=== PATIENT | male | born 1990 | race Caucasian/White ===

== ENCOUNTER 2020-08-10 16:10 | Outpatient (REF) | payer SELFPAY | END 2020-08-10 16:11 | disposition home or self-care (01) | LOC: HO.LAB 16:10 | PROVIDERS: Visit Provider Internal Medicine | DX: Z20.828 Contact with and (suspected) exposure to other viral communicable diseases (principal) | CPT/HCPCS: C9803; U0003 ==

== ENCOUNTER 2023-10-28 12:40 | Emergency (ER) | payer SELFPAY ==
--- NOTE | ~2023-10-28 | XR_ITS ---
EXAMINATION: XR CHEST CLINICAL INFORMATION: Cough and fever COMPARISON: Previous chest x-ray September 2017 TECHNIQUE: 2 views of the chest were obtained. FINDINGS: The cardiac and mediastinal contours are stable. The lungs are clear. No pleural effusion or pneumothorax. There is widening of the left paraspinal line adjacent to the lower thoracic spine, T9-T10. This is slightly increased from 2018 exam and probably related to vertebral body bony osteophyte. Bony structures otherwise unremarkable. XR/XR chest 2V IMPRESSION: No evidence for pneumonia. Widening of the left paraspinal line adjacent to the lower thoracic spine probably related to vertebral body bony osteophyte.
[2023-10-28 13:25] VITALS: BP 124/69; PULSE 55; RESP 18; TEMP 36.6; O2SAT 99; BMI 21.0
--- NOTE | 2023-10-28 13:36 | ED_ITS ---
HPI - URI/Sore Throat General Chief Complaint: Upper Respiratory Symptoms Stated Complaint: flu symptoms Time Seen by Provider: 10/28/23 13:28 Source: patient and family Mode of arrival: ambulatory Limitations: no limitations History of Present Illness HPI Narrative: 33-year-old male previously healthy here with 8 days of cough, congestion, body aches, runny nose. Patient denies chest pain, abdominal pain, vomiting, diarrhea, shortness of breath, skin rash, neck pain, neck stiffness, urinary symptoms. He reports initially he had a subjective fever but this is now resolved. The cough is nonproductive. He denies any recent travel or sick contact. NO weight loss, night sweats. Related Data Allergies Allergy/AdvReac Type Severity Reaction Status Date / Time No Known Allergies Allergy Verified 10/28/23 13:27 Review of Systems Review of Systems: Yes all other systems are reviewed and are negative Constitutional: Constitutional: Reports no additional constitutional complaints, Reports body ache(s), Denies chills, Reports fever(s), Denies headache(s) and Denies weakness Eyes: Eyes: Reports no additional eye complaints and Denies change in vision ENT: Reports system reviewed and no additional complaints, except as documented, Denies dizziness, Denies headache(s), Reports nasal congestion, Denies nasal discharge and Denies neck pain Cardiovascular: Cardiovascular: Reports no additional cardiovascular complaints, Denies chest pain, Denies leg edema and Denies dyspnea Respiratory: Respiratory: Reports no additional respiratory complaints, Reports cough and Denies dyspnea Gastrointestinal: Gastrointestinal: Reports no additional gastrointestinal complaints, Denies abdominal pain, Denies diarrhea, Denies nausea and Denies vomiting Genitourinary: Genitourinary: Denies urinary incontinence Musculoskeletal: Musculoskeletal: Reports no additional musculoskeletal complaints, Denies back pain, Denies arthralgias, Denies joint swelling, Denies neck pain, Denies numbness and Denies tingling Integumentary/Breasts: Skin/Breast: Reports system reviewed and no additional complaints, except as docu and Denies rash Neurologic: Reports system reviewed and no additional complaints, except as documented, Denies Abnormal speech present, Denies dizziness, Denies headache(s), Denies numbness, Denies tingling and Denies weakness FORMERLY [facility], [facility] Past Medical History Attestation statement: The following information was validated with the patient. Source: old records reviewed and nursing notes reviewed Social History Social History Advance Directives: No Advance Directives Information Provided: No Physical Exam Vital Signs: Vital Signs: Last Vital Signs Temp 97.8 F 10/28/23 13:25 Pulse 55 10/28/23 13:25 Resp 18 10/28/23 13:25 BP 124/69 10/28/23 13:25 Pulse Ox 99 10/28/23 13:25 O2 Del Method Room Air 10/28/23 13:25 BMI result Body Mass Index 21.0 Const: General: cooperative, healthy appearing, comfortable and no acute distress Orientation/consciousness: patient oriented x3 Limitations: no limitations HEENT: Head: Yes normal to inspection Ears: hearing grossly normal bilaterally and TM's normal bilaterally General nose exam: Normal external nose present Face and sinus: Yes normal facial exam Mouth: Normal oral and palatal mucosa present Throat: Yes posterior oropharynx normal, Yes tonsils normal and Yes uvula midline Eyes: General: appearance normal, both eyes and all related structures Pupils: Equal, round and reactive pupils present Neck: Neck: Yes normal visual inspection, Yes full ROM, Yes no lymphadenopathy and Yes no meningeal signs Chest: Chest palpation & inspection: normal inspection of the chest Resp: Effort & Inspection: normal respiratory effort Auscultation: clear to auscultation bilaterally Cardio: Rate: regular rate Rhythm: regular rhythm Peripheral pulses: Peripheral pulses 2+ throughout GI: Inspection: Yes normal to inspection Palpation (GI): Soft to palpation and nontender Auscultation: normal bowel sounds Back/Spine/Pelvis: Thoracic/Lumbar Spine: thoracic and lumbar spine normal to inspection Skin: General skin exam: no rashes or lesions noted Neuro: General: patient oriented x3, no meningeal signs, no focal motor deficits and normal sensation to monofilament Cranial nerves: Yes Equal, round and reactive pupils present Cognition (Neuro): normal cognition Speech: No Abnormal speech present Gait exam (Neuro): Normal gait present Motor exam (neuro): 5/5 motor strength present throughout Extrem: General: Yes normal to inspection, Yes no pedal edema and Yes no calf tenderness Course Course Course Narrative: viral testing is negative. Chest x-ray shows no acute finding. Likely viral syndrome. Reviewed worrisome signs and symptoms of when to return to the emergency room. Comfortable plan for discharge home. Medical Decision Making Medical Decision Making [facility] Narrative: 33-year-old male previously healthy here with 8 days of cough, congestion, body aches, runny nose. Patient denies chest pain, abdominal pain, vomiting, diarrhea, shortness of breath, skin rash, neck pain, neck stiffness, urinary symptoms. He reports initially he had a subjective fever but this is now resolved. The cough is nonproductive. He denies any recent travel or sick contact. NO weight loss, night sweats. Exam is benign. VSS. LS CTA Will send viral testing, obtain CXR Differential Diagnosis Differential Diagnoses: The differential diagnosis associated with the pre sentation includes viral syndrome, influenza, PNA low suspicion for PE, meningitis/encephalitis, malignancy Admission/Observation Consideration of admission/observation: Escalation of care including admission/observation considered Patient well-appearing, nontoxic, afebrile. Stable vital signs. No need for supplemental oxygen and or admission. Lab Data [facility] Lab Attestation statement: I reviewed the patient's lab results. Labs: Lab Results 10/28/23 Range/Units 13:30 COVID-19 (CARI) Negative (Negative) COVID-19 Clin Com See Note Influenza Type A (NII) Negative (Negative) Influenza Type B (NII) Negative (Negative) Influenza A & B Note See Note Independent Interpretation I performed an independent interpretation of an: Plain X-Ray Interpretation: I independently viewed the x-ray and agree with the radiology report Radiology Impression Discussion of test interpretation with radiology: I have reviewed the radiologist's reading. Radiologist Impression: [place] [id number] XRay Report Signed Patient: Shravan Saeed MR#: [id number] : 1990 Acct:[id number] Age/Sex: 33 / M ADM Date: 10/28/23 Loc: HO.ED Attending Dr: Ordering Physician: Taryn Uribe NP Date of Service: 10/28/23 Procedure(s): XR chest 2V Accession Number(s): [id number] cc: Physician,None ; Taryn Uribe NP~ EXAMINATION: XR CHEST CLINICAL INFORMATION: Cough and fever COMPARISON: Previous chest x-ray September 2017 TECHNIQUE: 2 views of the chest were obtained. FINDINGS: The cardiac and mediastinal contours are stable. The lungs are clear. No pleural effusion or pneumothorax. There is widening of the left paraspinal line adjacent to the lower thoracic spine, T9-T10. This is slightly increased from 2018 exam and probably related to vertebral body bony osteophyte. Bony structures otherwise unremarkable. XR/XR chest 2V IMPRESSION: No evidence for pneumonia. Widening of the left paraspinal line adjacent to the lower thoracic spine probably related to vertebral body bony osteophyte. Independent Historian Clinical information obtained from an independent historian. History obtained from or confirmed by: Friend Discharge Plan Discharge Clinical Impression: Viral infection Patient Disposition: Home, Self-Care Instructions: Viral Syndrome (ED) Additional Instructions: testing for flu and COVID are negative. Chest x-ray shows no signs of pneumonia Continue Motrin or Tylenol Increase fluids, rest Follow-up with primary care doctor for any continued symptoms. Referrals: Physician,None [Primary Care Provider] - 1 week
[2023-10-28 13:54] LABS: IDNOW Serial# 08D9AD1C; Influenza A Negative (Negative); Influenza B2 Negative (Negative)
[2023-10-28 13:55] LABS: COVID-19 Test Negative (Negative); IDNOW Serial# 152EDE1D
[2023-10-28 15:22] VITALS: BP 126/66; PULSE 60; RESP 18; TEMP 36.6; O2SAT 99
== END 2023-10-28 15:32 | disposition home or self-care (01) ==
PROVIDERS: Emergency Provider Internal Medicine
DX: B34.9 Viral infection, unspecified (principal); R05.9 Cough, unspecified; Z11.52 Encounter for screening for COVID-19
CPT/HCPCS: 71046; 87502; 87635; 99282; 99283